=== PATIENT | female | born 1995 | race Caucasian/White ===

== ENCOUNTER 2016-11-16 23:23 | Emergency (ER) | payer BC ==
[~2016-11-16] VITALS: Ht 170.2 cm; Wt 69.5 kg
[2016-11-17 00:41] LABS: HEMATOCRIT 41.9 % (36.0-46.0); MCH 31.2 PG (29.0-34.0); MCHC 34.8 G/DL (30.0-36.0); MCV 89.5 FL (83-99); MEAN PLAT.VOLUME 9.3 uM^3 (9.5-12.4); PLATELET COUNT 222 K/uL (156-360); RBC DIS.WIDTH-CV 11.7 % (11.8-14.6); RBC DIS.WIDTH-SD 37.2 % (39-53); RED BLOOD COUNT 4.68 M/uL (3.80-5.20); WHITE BLOOD COUNT 7.4 K/uL (4.1-10.2)
[2016-11-17 00:51] LABS: CHLORIDE 103 mEq/L (99-109); SODIUM 137 mEq/L (136-147)
[2016-11-17 00:53] LABS: GLUCOSE 96 mg/dL (70-99)
[2016-11-17 00:54] LABS: ANION GAP 10 MEQ/L (2-14)
[2016-11-17 00:55] LABS: TOTAL BILIRUBIN 1.3 mg/dL (0.0-1.0)
[2016-11-17 00:56] LABS: ALKALINE PHOSPHATASE 69 IU/L (3-129)
[2016-11-17 00:57] LABS: ADD MIUA? YES; BILIRUBIN NEGATIVE; BLOOD MODERATE; COLOR YELLOW ((YELLOW)); GLUCOSE (STRIP) NEGATIVE; KETONES NEGATIVE; LEUKOCYTES NEGATIVE; NITRITE NEGATIVE; PH, URINE 7.5 (5-8); PROTEIN (STRIP) NEGATIVE; SPECIFIC GRAVITY 1.019 (1.000-1.030); UROBILINOGEN 0.2 MG/DL (0.2-1.0)
[2016-11-17 00:57] LABS: GFR ESTIMATE (CALCULATED) > 59 mL/min/
[2016-11-17 00:58] LABS: UREA NITROGEN (BUN) 10 mg/dL (9-23)
[2016-11-17 01:07] LABS: QUANTITATIVE HCG < 4.0 MIU/ML
[2016-11-17 01:22] LABS: BACTERIA 1+ /HPF; CASTS NONE SEEN /LPF; CRYSTALS NONE SEEN; EPITHELIAL CELLS RARE /HPF; MUCUS NONE SEEN /LPF; UCUL ADDED? NO; WHITE BLOOD CELLS RARE /HPF (0-5)
[2016-11-17] MEDS ORDERED: MOTRIN800 MG PO (02:18)
[2016-11-17] MEDS ORDERED: ZOFRAN ODT4 MG PO (02:18)
[2016-11-17] MEDS ORDERED: MACROBID100 MG PO (02:36)
[2016-11-17 02:42] VITALS: BP 128/87
== END 2016-11-17 02:43 | disposition home or self-care (01) ==
LOC: EME 23:23 → RME 23:23
PROVIDERS: Nurse Practitioner Family
DX: R10.9 Unspecified abdominal pain (principal); R11.2 Nausea with vomiting, unspecified; Z87.442 Personal history of urinary calculi
CPT/HCPCS: 74176; 80053; 81003; 84702; 85027; 99281; 99284; J1885; J2405

== ENCOUNTER 2018-01-28 19:53 | Outpatient (CLI) | payer BC, OTHER ==
[~2018-01-28 19:53] MED LIST: MACROBID100 MG PO; MOTRIN800 MG PO; ZOFRAN ODT4 MG PO
[2018-01-28 20:25] VITALS: BP 128/84
[2018-01-28] MEDS ORDERED: PRENATAL TABLE1 EAC3 PO (21:06)
[2018-01-29] MEDS ORDERED: IBUPROFEN800 MG PO (14:42)
== END 2018-01-28 21:15 | disposition home or self-care (01) ==
LOC: LDRP-OP 19:53 → 2WEST 19:54 → LDRP-OP 02-23 10:59
DX: O47.1 False labor at or after 37 completed weeks of gestation (principal); O99.283 Endocrine, nutritional and metabolic diseases complicating pregnancy, third trimester; E23.6 Other disorders of pituitary gland; Z82.49 Family history of ischemic heart disease and other diseases of the circulatory system; Z3A.40 40 weeks gestation of pregnancy
CPT/HCPCS: 59025; G0378

== ENCOUNTER 2018-01-29 02:23 | Inpatient (IN) | payer BC, OTHER ==
[2018-01-29] VITALS (20 sets, daily range): BP systolic 91–136; BP diastolic 58–89
[~2018-01-29] VITALS: Ht 170.2 cm; Wt 81.6 kg
[~2018-01-29 02:23] MED LIST changes: +PRENATAL TABLE1 EAC3 PO
[2018-01-29 03:28] LABS: AMPHETAMINE NEGATIVE (500 ng/mL); BARBITURATES NEGATIVE (200 ng/mL); BENZODIAZEPINES NEGATIVE (150 ng/mL); BUPRENORPHINE NEGATIVE (10 ng/mL); COCAINE NEGATIVE (150 ng/mL); METHADONE NEGATIVE (200 ng/mL); METHAMPHETAMINE NEGATIVE (500 ng/mL); OPIATES (MORPHINE) NEGATIVE (100 ng/mL); OXYCODONE NEGATIVE (100 ng/mL); PHENCYCLIDINE NEGATIVE (25 ng/mL); PROPOXYPHENE NEGATIVE (300 ng/mL); THC CANNABINOIDS NEGATIVE (50 ng/mL); TRICYCLIC ANTIDEPRESSANTS NEGATIVE (300 ng/mL)
[2018-01-29 03:48] LABS: BASOPHIL (%) 0.2 % (0-1); EOSINOPHIL (%) 0.2 % (0-5); HEMATOCRIT 35.2 % (36.0-46.0); HEMOGLOBIN 12.5 G/DL (11.9-15.5); IMMATURE GRANULOCYTE (%) 0.8 % (0.0-0.7); LYMPHOCYTE (%) 14.2 % (15-42); LYMPHOCYTE COUNT 1.8 K/uL (1.0-2.8); MCH 32.7 PG (29.0-34.0); MCHC 35.5 G/DL (30.0-36.0); MCV 92.1 FL (83-99); MONOCYTE (%) 6.4 % (3-12); MONOCYTE COUNT 0.8 K/uL (0-0.8); NEUTROPHIL (%) 78.2 % (45-76); PLATELET COUNT 170 K/uL (156-360); RBC DIS.WIDTH-CV 12.5 % (11.8-14.6); RBC DIS.WIDTH-SD 42.1 % (39-53); RED BLOOD COUNT 3.82 M/uL (3.80-5.20); WHITE BLOOD COUNT 12.7 K/uL (4.1-10.2)
[2018-01-29] MEDS ORDERED: IBUPROFEN800 MG PO (14:42)
[2018-01-30 07:20] VITALS: BP 96/57
[2018-01-30 15:01] VITALS: BP 108/59
[2018-01-30 21:54] VITALS: BP 99/57
[2018-01-31 07:32] VITALS: BP 100/67
== END 2018-01-31 13:06 | disposition home or self-care (01) | DRG 775 ==
LOC: LDRP-OP 02:23 → 2WEST 02:24 → LDRP-OP 02-23 22:08
PROVIDERS: Nurse Practitioner
PROC: 3E0R3BZ Introduction of Anesthetic Agent into Spinal Canal, Percutaneous Approach (ICD-10-PCS; principal; 2018-01-29)
PROC: 10E0XZZ Delivery of Products of Conception, External Approach (ICD-10-PCS; principal; 2018-01-29)
PROC: 0UQGXZZ Repair Vagina, External Approach (ICD-10-PCS; principal; 2018-01-29)
PROC: 00HU33Z Insertion of Infusion Device into Spinal Canal, Percutaneous Approach (ICD-10-PCS; principal; 2018-01-29)
PROC: 10907ZC Drainage of Amniotic Fluid, Therapeutic from Products of Conception, Via Natural or Artificial Opening (ICD-10-PCS; principal; 2018-01-29)
DX: O48.0 Post-term pregnancy (principal); O71.4 Obstetric high vaginal laceration alone; Z37.0 Single live birth; Z3A.40 40 weeks gestation of pregnancy
CPT/HCPCS: 85025; C1755; J7120